=== PATIENT | female | born 1975 | race Caucasian/White ===

== ENCOUNTER 2022-05-14 07:38 | Day surgery (SDC) | payer OTHER ==
[~2022-05-14] VITALS: Ht 157.5 cm; Wt 72.6 kg
[2022-05-14] MEDS ORDERED: LIDOCAINE 2% 100 MG/5 ML UJET TP ONE (09:34)
[2022-05-14] MEDS ORDERED: fentaNYL citrate 0.05 MG/ML VIAL ONE (09:34)
[2022-05-14] MEDS ORDERED: fentaNYL citrate 0.05 MG/ML VIAL IVP ONE (12:25)
== END 2022-05-14 11:15 | disposition home or self-care (01) ==
LOC: MOR 07:38 → MMU 07:38 → MOR 11:15
PROVIDERS: ATTEND Internal Medicine Gastroenterology
DX: Z12.11 Encounter for screening for malignant neoplasm of colon (principal); D12.2 Benign neoplasm of ascending colon; Z80.8 Family history of malignant neoplasm of other organs or systems; Z79.899 Other long term (current) drug therapy; Z20.822 Contact with and (suspected) exposure to COVID-19
CPT/HCPCS: 45385; 87426; J3010